=== PATIENT | female | born 1945 | race Caucasian/White ===

== ENCOUNTER 2017-09-17 10:30 | Outpatient (CLI) | payer OTHER | END 2017-09-17 19:55 | disposition home or self-care (01) | LOC: SMA 10:30 | DX: Z12.31 Encounter for screening mammogram for malignant neoplasm of breast (principal) | CPT/HCPCS: 77067 ==

== ENCOUNTER 2017-10-12 11:15 | Outpatient (CLI) | payer OTHER | END 2017-10-12 19:49 | disposition home or self-care (01) | LOC: SMA 11:15 | PROVIDERS: ATTEND Family Medicine | DX: R92.8 Other abnormal and inconclusive findings on diagnostic imaging of breast (principal) | CPT/HCPCS: 77065 ==